=== PATIENT | male | born 1940 | race Caucasian/White ===

== ENCOUNTER → 2017-01-31 | Outpatient (CLI) | payer BC ==
--- NOTE | 2017-01-31 15:57 | CR ---
EXAMINATION: PA chest and left ribs HISTORY: Chest pain. FINDINGS: The trachea is midline. The cardiomediastinal silhouette is within normal limits. No pulmonary infil trates, effusions or pneumothorax. Osseous structures appear unremarkable. No displaced rib fracture identified. Partially visualized a nterior cervical fusion hardware noted. IMPRESSION: No acute cardiopulmonary process.
== END ==
LOC: MW.CHFP 11:11
PROVIDERS: ATTEND Nurse Practitioner Family
DX: R07.89 Other chest pain (principal); Z91.81 History of falling
CPT/HCPCS: 71101-26-LT; 71101-LT; 93005